=== PATIENT | female | born 1995 | race Caucasian/White ===

== ENCOUNTER 2021-05-08 05:01 | Inpatient (IN) | payer BC ==
[2021-05-08] MEDS ORDERED: Sodium Chloride 0.9% 10 ML Syringe FLUSH PRN (07:52)
[2021-05-08] MEDS ORDERED: Calcium Carbonate 500 MG Tab.Chew PO PRN (07:52)
[2021-05-08] MEDS ORDERED: fentaNYL 100 MCG/2 ML SDV IVPUSH PRN (07:52)
[2021-05-08] MEDS ORDERED: Misoprostol 50 MCG (1/2 of 100 MCG) Tab VAG ONE (08:00)
[2021-05-08] MEDS: Ondansetron 4 MG/2 ML SDV IV PRN ×2 (08:26→13:37)
--- NOTE | 2021-05-08 08:29 | PCM.LDHP ---
L&D History of Present Illness - General Date of Service: 05/08/21 Admit Problem/Dx: Patient Status Order with Admit Dx/Problem 05/08/21 07:52 Patient Status [ADT] Routine Admission Diagnosis/Problem Admission Diagnosis/Problem Term Source of Information: Patient History Limitations: Reports: No Limitations - History of Present Illness Introduction:: 05/08/21 25 yo presents to L & D today for induction of labor at 39 0/7 weeks. She is being induced due to induced hypertension. She has had normal labs and has no s/s of preeclampsia, she was taken off work awhile ago which helped keep her blood pressures stable. She is A positive blood type, GBS negative, rubella immune, HIV/Hep C/B/RPR all non reactive. She has had some jim benavidez at home over the last few days. BPP 8/8 today with NST reactive for 08/09. Marilee has had an uncomplicated . Timing/Duration: Reports: intermittent Severity: Mild Improves with: Reports: None Worsens with: Reports: None Associated Symptoms: Denies: vaginal bleeding, vaginal fluid - Related Data Allergies/Adverse Reactions: Allergies Allergy/AdvReac Type Severity Reaction Status Date / Time No Known Allergies Allergy Verified 04/30/21 10:21 Home Medications: Home Meds Ferrous Gluconate [Iron] 1 tab PO DAILY 04/30/21 [History] Pnv No.95/Ferrous Fum/Folic AC [ Caplet] 1 tab PO DAILY 04/30/21 [History] Past Medical History HEENT History: Reports: Impaired Vision Cardiovascular History: Reports: Hypertension, Other (See Below) Other Cardiovascular History: HTN with . 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 Psychiatric History: Reports: Depression Hematologic History: Reports: Iron Deficiency - Infectious Disease History Infectious Disease History: Reports: Chicken Pox - Past Surgical History HEENT Surgical History: Reports: None Cardiovascular Surgical History: Reports: None Neurological Surgical History: Reports: None Social & Family History - Tobacco Use Tobacco Use Status *Q: Never Tobacco User Second Hand Smoke Exposure: No - Caffeine Use Caffeine Use: Reports: Coffee - Recreational Drug Use Recreational Drug Use: No H&P Review of Systems - Review of Systems: Review Of Systems: See Below General: Reports: No Symptoms HEENT: Reports: No Symptoms Pulmonary: Reports: No Symptoms Cardiovascular: Reports: No Symptoms Gastrointestinal: Reports: Nausea Genitourinary: Reports: No Symptoms Musculoskeletal: Reports: No Symptoms Skin: Reports: No Symptoms Psychiatric: Reports: No Symptoms Neurological: Reports: No Symptoms Hematologic/Lymphatic: Reports: No Symptoms Immunologic: Reports: No Symptoms L&D Exam - Exam Exam: See Below - Vital Signs Vital Signs: Last Vital Signs Temp 36.9 C 05/08/21 07:39 Pulse 102 H 05/08/21 07:39 Resp 18 05/08/21 07:39 BP 138/80 05/08/21 07:39 Pulse Ox 97 05/08/21 07:39 Weight: 90.718 kg - OB Specific Contraction Intensity: Irritability Movement: Active Heart Tones: Present Heart Tones per Min: 140 Heart Rate (FHR) Variability: Moderate (6-25 bmp) Presentation: Vertex - Mills Score Mills Score Cervix Position: Midposition Mills Score Consistency: Soft Mills Score Effacement: 51-70% Mills Score Dilation: 1-2 cm Mills Score Infant's Station: -2 Mills Score Total: 7 - Exam General: Alert, Oriented HEENT: PERRLA, Conjunctiva Clear, EACs Clear, EOMI, Hearing Intact, Mucosa Moist & [place], Nares Patent, Normal Nasal Septum, Pupils Equal, Pupils Reactive Neck: Supple, Trachea Midline Lungs: Clear to Auscultation, Normal Respiratory Effort Cardiovascular: Regular Rate, Regular Rhythm GI/Abdominal Exam: Normal Bowel Sounds, Soft, Non-Tender, Pelvis Stable Genitourinary: Normal external exam, Normal bimanual exam, Cervical dilitation, Enlarged uterus Back Exam: Normal Inspection, Full Range of Motion Extremities: Normal Inspection, Normal Range of Motion, Non-Tender, No Pedal Edema, Normal Capillary Refill Skin: Warm, Dry, Intact Neurological: Cranial Nerves Intact, Reflexes Equal Bilateral Psychiatric: Alert, Normal Affect, Normal Mood - Patient Data Lab Results Last 24 hrs: Laboratory Results - last 24 hr 05/08/21 05/08/21 05/08/21 Range/Units 07:01 07:01 07:15 WBC 10.6 (4.5-11.0) K/uL RBC 3.82 (3.30-5.50) M/uL Hgb 11.7 L (12.0-15.0) g/dL Hct 35.0 L (36.0-48.0) % MCV 92 (80-98) fL MCH 31 (27-31) pg MCHC 33 (32-36) % Plt Count 306 (150-400) K/uL Neut % (Auto) 55.8 (36-66) % Lymph % (Auto) 35.3 (24-44) % Ray % (Auto) 7.1 H (2-6) % Eos % (Auto) 1.2 L (2-4) % Baso % (Auto) 0.6 (0-1) % Urine Color Yellow (YELLOW) Urine Appearance Slightly cloudy A (CLEAR) Urine pH 7.0 (5.0-8.0) Ur Specific [place] 1.025 (1.008-1.030) Urine Protein Negative (NEGATIVE) mg/dL Urine Glucose (UA) Negative (NEGATIVE) mg/dL Urine Ketones Negative (NEGATIVE) mg/dL Urine Occult Blood Negative (NEGATIVE) Urine Nitrite Negative (NEGATIVE) Urine Bilirubin Negative (NEGATIVE) Urine Urobilinogen 0.2 (0.2-1.0) EU/dL Ur Leukocyte Esterase Negative (NEGATIVE) Urine RBC Not seen (0-5) Urine WBC 0-5 (0-5) Ur Epithelial Cells Moderate Amorphous Sediment Not seen Urine Bacteria Moderate Urine Mucus Few Urine Opiates Screen Negative (NEGATIVE) Ur Oxycodone Screen Negative (NEGATIVE) Urine Methadone Screen Negative (NEGATIVE) Ur Propoxyphene Screen Negative (NEGATIVE) Ur Barbiturates Screen Negative (NEGATIVE) Ur Tricyclics Screen Negative (NEGATIVE) Ur Phencyclidine Scrn Negative (NEGATIVE) Ur Amphetamine Screen Negative (NEGATIVE) U Methamphetamines Scrn Negative (NEGATIVE) Urine MDMA Screen Negative (NEGATIVE) U Benzodiazepines Scrn Negative (NEGATIVE) U Cocaine Metab Screen Negative (NEGATIVE) U Marijuana (THC) Screen Negative (NEGATIVE) SARS CoV-2 RNA Rapid BROCK 05/08/21 Range/Units 08:15 WBC (4.5-11.0) K/uL RBC (3.30-5.50) M/uL Hgb (12.0-15.0) g/dL Hct (36.0-48.0) % MCV (80-98) fL MCH (27-31) pg MCHC (32-36) % Plt Count (150-400) K/uL Neut % (Auto) (36-66) % Lymph % (Auto) (24-44) % Ray % (Auto) (2-6) % Eos % (Auto) (2-4) % Baso % (Auto) (0-1) % Urine Color (YELLOW) Urine Appearance (CLEAR) Urine pH (5.0-8.0) Ur Specific [place] (1.008-1.030) Urine Protein (NEGATIVE) mg/dL Urine Glucose (UA) (NEGATIVE) mg/dL Urine Ketones (NEGATIVE) mg/dL Urine Occult Blood (NEGATIVE) Urine Nitrite (NEGATIVE) Urine Bilirubin (NEGATIVE) Urine Urobilinogen (0.2-1.0) EU/dL Ur Leukocyte Esterase (NEGATIVE) Urine RBC (0-5) Urine WBC (0-5) Ur Epithelial Cells Amorphous Sediment Urine Bacteria Urine Mucus Urine Opiates Screen (NEGATIVE) Ur Oxycodone Screen (NEGATIVE) Urine Methadone Screen (NEGATIVE) Ur Propoxyphene Screen (NEGATIVE) Ur Barbiturates Screen (NEGATIVE) Ur Tricyclics Screen (NEGATIVE) Ur Phencyclidine Scrn (NEGATIVE) Ur Amphetamine Screen (NEGATIVE) U Methamphetamines Scrn (NEGATIVE) Urine MDMA Screen (NEGATIVE) U Benzodiazepines Scrn (NEGATIVE) U Cocaine Metab Screen (NEGATIVE) U Marijuana (THC) Screen (NEGATIVE) SARS CoV-2 RNA Rapid BROCK Negative Result Diagrams: 05/08/21 07:15 - Problem List (1) induced hypertension SNOMED Code(s): 33990846 ICD Code: O13.9 - GESTATIONAL HTN W/O SIGNIFICANT PROTEINURIA, UNSP TRIMESTER Status: Acute Current Visit: Yes (2) Term SNOMED Code(s): 10651059 ICD Code: Z34.90 - ENCNTR FOR SUPRVSN OF NORMAL , UNSP, UNSP TRIMESTER Status: Acute Current Visit: Yes (3) Elective induction of labor planned SNOMED Code(s): 125029309 ICD Code: [id number] - Status: Acute Current Visit: Yes Problem List Initiated/Reviewed/Updated: Yes Orders Last 24hrs: Active Orders 24 hr Category Date Time Status Patient Status [ADT] Routine ADT 05/08/21 07:52 Active Communication Order [RC] ASDIRECTED Care 05/08/21 07:52 Active Heart Tones [RC] PER UNIT ROUTINE Care 05/08/21 07:52 Active Non Stress Test [RC] Click to Edit Care 05/08/21 07:52 Active Notify Provider Vital Signs [RC] PRN Care 05/08/21 07:54 Active Notify Provider [RC] PRN Care 05/08/21 07:52 Active Up ad Liliana [RC] ASDIRECTED Care 05/08/21 07:52 Active VTE/DVT Education [RC] Click to Edit Care 05/08/21 07:55 Active Vital Signs [RC] PER UNIT ROUTINE Care 05/08/21 07:52 Active Regular Diet [DIET] Diet 05/08/21 Breakfast Active BPP w NST [US] Routine Exams 05/08/21 07:06 Taken Calcium Carbonate [Tums] Med 05/08/21 07:52 Active 1,000 mg PO Q2H PRN Ondansetron [Zofran] Med 05/08/21 07:52 Active 4 mg IV Q4H PRN Sodium Chloride 0.9% [Saline Flush] Med 05/08/21 07:52 Active 10 ml FLUSH ASDIRECTED PRN fentaNYL [Sublimaze] Med 05/08/21 07:52 Active 100 mcg IVPUSH Q1H PRN DVT/VTE Prophylaxis Reflex [OM.PC] Routine Oth 05/08/21 07:52 Ordered Saline Lock Insert [OM.PC] Routine Oth 05/08/21 07:52 Ordered Resuscitation Status Routine Resus Stat 05/08/21 07:52 Ordered Medication Orders Calcium Carbonate/Glycine (Calcium Carbonate 500 Mg Tab.Chew) 1,000 mg PO Q2H PRN PRN Reason: Indigestion Fentanyl (Fentanyl 100 Mcg/2 Ml Sdv) 100 mcg IVPUSH Q1H PRN PRN Reason: Pain (moderate 4-6) Ondansetron HCl (Ondansetron 4 Mg/2 Ml Sdv) 4 mg IV Q4H PRN PRN Reason: Nausea/Vomiting Sodium Chloride (Sodium Chloride 0.9% 10 Ml Syringe) 10 ml FLUSH ASDIRECTED PRN PRN Reason: Keep Vein Open Assessment/Plan Comment:: 05/08/21 here for induction of labor at 39 0/7 weeks for induced hypertension GBS negative SVE /-2, vertex presentation EFW 7 lb BP stable, 138/80 this am, no protein in the urine, normal platelets Plan: 50 mcg cytotec inserted vaginally Monitor for one hour then up moving and intermittent monitoring Anticipate Reassess cervical change at lunch unless indicated sooner
[2021-05-08] MEDS: Lactated Ringers 1,000 ML IV SCH ×2 (12:20→23:19)
[2021-05-08] MEDS ORDERED: Lactated Ringers 500 ML IV ONE (12:20)
--- NOTE | 2021-05-08 12:41 | US ---
BPP w NST INDICATION: hypertension COMPARISON: None FINDINGS: Single live IUP in: Cephalic position. heart rate: 139 BPM. Biophysical profile score: 8/8. JAMES: 15 cm. IMPRESSION: Normal biophysical profile score of 8/8.
--- NOTE | 2021-05-08 12:44 | PCM.PNLD ---
Labor Progress Note - VS & Meds Vital Signs: Last Vital Signs Temp 36.9 C 05/08/21 07:39 Pulse 70 05/08/21 09:22 Resp 18 05/08/21 09:22 BP 120/58 L 05/08/21 09:11 Pulse Ox 98 05/08/21 09:22 Active Medications: Current Medications Calcium Carbonate/Glycine (Calcium Carbonate 500 Mg Tab.Chew) 1,000 mg PO Q2H PRN PRN Reason: Indigestion Fentanyl (Fentanyl 100 Mcg/2 Ml Sdv) 100 mcg IVPUSH Q1H PRN PRN Reason: Pain (moderate 4-6) Lactated Ringer's (Ringers, Lactated) 500 mls @ 999 mls/hr IV ASDIRECTED ONE Stop: 05/08/21 12:50 Lactated Ringer's (Ringers, Lactated) 1,000 mls @ 125 mls/hr IV ASDIRECTED SHEA Last Admin: 05/08/21 12:20 Dose: 125 mls/hr Documented by: Ondansetron HCl (Ondansetron 4 Mg/2 Ml Sdv) 4 mg IV Q4H PRN PRN Reason: Nausea/Vomiting Last Admin: 05/08/21 08:26 Dose: 4 mg Documented by: Sodium Chloride (Sodium Chloride 0.9% 10 Ml Syringe) 10 ml FLUSH ASDIRECTED PRN PRN Reason: Keep Vein Open Discontinued Medications Misoprostol (Misoprostol 50 Mcg (1/2 Of 100 Mcg) Tab) 50 mcg VAG ONETIME ONE Stop: 05/08/21 08:01 Last Admin: 05/08/21 08:20 Dose: 50 mcg Documented by: - Uterine Contractions Uterine Monitoring Mode: External [place]hr Contraction Frequency (min): 1 Contraction Duration (sec): 40-60 Contraction Intensity: Mild to Moderate Uterine Resting Tone: Soft - Monitoring Monitor Mode: External Ultrasound Heart Rate (FHR) Variability: Moderate (6-25 bmp) Accelerations: Present, 15x15 Decelerations: Variable Strip Review: Category II - Vaginal Exam Dilation (cm): 1.5 Effacement (Percent): 80 Station: -2 Cervical Position: Midposition Sterile Vaginal Exam Performed By: Marleen Garcia - Labor Progress (Free Text) Labor Progress: 05/08/21 I was called to bedside due to leaking of fluid and recurrent variable decele rations. Variability is moderate, good baseline, there is variable decelerations present with some contractions, not quite enough to call them recurrent, most are mild. Uterus is hyperstimulated from cytotec so fluid bolus is started. She did have SROM of small amount of clear fluid. SVE 1.5/80/-2. Moved patient to hands and knees and will continue to monitor FHT's. Patient starting to feel some pain in both her abdomen and low back with contractions.
[2021-05-08] MEDS ORDERED: ePHEDrine 50 MG/ML SDV IVPUSH PRN ×2 (13:49→16:24)
[2021-05-08] MEDS ORDERED: Lactated Ringers 1,000 ML IV ONE (13:49)
[2021-05-08] MEDS ORDERED: Terbutaline 1 MG/ML SDV ONE (14:10)
[2021-05-08] MEDS ORDERED: Terbutaline 1 MG/ML SDV SUBCUT ONE (14:14)
[2021-05-08] MEDS ORDERED: Oxytocin 10 Units/1 ML SDV ONE ×2 (14:25→14:44)
[2021-05-08] MEDS ORDERED: Propofol 200 MG/20 ML SDV ONE (14:25)
[2021-05-08] MEDS ORDERED: Succinylcholine 200 MG/10 ML MDV ONE (14:25)
[2021-05-08] MEDS ORDERED: Rocuronium 50 MG/5 ML Vial ONE (14:41)
[2021-05-08] MEDS ORDERED: fentaNYL 250 MCG/5 ML SDV ONE (14:42)
[2021-05-08] MEDS ORDERED: Dexamethasone 4 MG/ML SDV ONE (14:45)
[2021-05-08] MEDS ORDERED: Ondansetron 4 MG/2 ML SDV ONE (14:45)
[2021-05-08] MEDS ORDERED: Neostigmine Methylsulfate 1 MG/ML 5 ML Syringe ONE (14:46)
[2021-05-08] MEDS ORDERED: Glycopyrrolate 0.2 MG/ML 5 ML MDV ONE (14:46)
[2021-05-08] MEDS ORDERED: ceFAZolin 1 GM Vial ONE (14:54)
[2021-05-08] MEDS ORDERED: Sodium Chloride 0.9% 10 ML ONE (14:54)
[2021-05-08] MEDS ORDERED: fentaNYL 100 MCG/2 ML SDV ONE (15:15)
[2021-05-08] MEDS ORDERED: Sugammadex Sodium 200 MG/2 ML VIAL ONE (15:23)
[2021-05-08] MEDS ORDERED: fentaNYL 100 MCG/2 ML SDV IVPUSH ONE (15:43)
--- NOTE | 2021-05-08 15:43 | PCM.SN.2 ---
- Free Text/Narrative Note: 05/08/21 Around 1420 I was called to the room to recheck patient due to pain and wanting an epidural. SVE /-1. Baby was having recurrent variable decelerations and there was difficulty keeping baby on the monitor. Uterus was still hyperstimulated even though there were no further medications used to initiate contractions and a fluid bolus had been done. Recurrent variables with every contraction started, down to 60's. Interventions included position changes, scalp stimulation (with no acceleration achieved), fluid bolus, and finally terbutaline. A scalp electrode was not placed due to difficulty with equipment. There was some recovery after the terbutaline was given. There was still moderate variability but with Category 2 tracing and loss of accelerations, patient was counseled on section and the risk of category 3 tracing if we continued labor. She requested a section for the health of baby. She understood that the FHT tracing could either improve or worsen and she consented to primary emergent section.
[2021-05-08] MEDS ORDERED: Ibuprofen 800 MG Tab PO PRN (16:24)
[2021-05-08] MEDS ORDERED: Bisacodyl 10 MG Supp RECTAL PRN (16:24)
[2021-05-08] MEDS ORDERED: Simethicone 80 MG Tab.Chew PO PRN (16:24)
[2021-05-08] MEDS ORDERED: Naloxone 0.4 MG/ML SDV IVPUSH PRN (16:24)
[2021-05-08] MEDS ORDERED: diphenhydrAMINE 50 MG/ML SDV IVPUSH PRN (16:24)
[2021-05-08] MEDS ORDERED: Witch Hazel Medicated Pads 100/Jar TOP ONE (16:24)
[2021-05-08] MEDS ORDERED: Ondansetron 4 MG Tab.DIS PO PRN (16:24)
[2021-05-08] MEDS ORDERED: Lanolin 100% Cream 40 GM Tube TOP ONE (16:24)
[2021-05-08] MEDS ORDERED: Benzocaine 20% Top Spray 56 GM Bottle TOP ONE (16:24)
[2021-05-08] MEDS: fentaNYL 100 MCG/2 ML SDV IVPUSH PRN ×2 (16:40→21:54)
[2021-05-08] MEDS ORDERED: Ketorolac 30 MG/ML SDV IVPUSH ONE (17:05)
[2021-05-08] MEDS ORDERED: Witch Hazel Medicated Pads 100/Jar TOP PRN (18:00)
[2021-05-08] MEDS ORDERED: Lanolin 100% Cream 40 GM Tube TOP PRN (18:00)
[2021-05-08] MEDS ORDERED: Lactated Ringers 1,000 ML IV SCH (18:30)
[2021-05-08] MEDS ORDERED: Benzocaine 20% Top Spray 56 GM Bottle TOP PRN (20:30)
[2021-05-08] MEDS: Acetaminophen/HYDROcodone 325-5 MG Tab PO PRN (20:42)
[2021-05-08] MEDS: Ibuprofen 800 MG Tab PO PRN (23:16)
[2021-05-09] MEDS: Acetaminophen/HYDROcodone 325-5 MG Tab PO PRN ×5 (00:51→20:19)
[2021-05-09] MEDS: Lactated Ringers 1,000 ML IV SCH (05:12)
[2021-05-09] MEDS: Prenatal Multivitamin with Calcium/Folic Acid/Iron Tab PO SCH (09:21)
--- NOTE | 2021-05-09 09:45 | PCM.PNPP ---
- General Info Date of Service: 05/09/21 Functional Status: Reports: Pain Controlled, Tolerating Diet, Ambulating - Review of Systems General: Reports: Fatigue HEENT: Reports: No Symptoms Pulmonary: Reports: No Symptoms Cardiovascular: Reports: No Symptoms Gastrointestinal: Reports: No Symptoms Genitourinary: Reports: Other (spring catheter in place) Musculoskeletal: Reports: No Symptoms Skin: Reports: No Symptoms Neurological: Reports: Dizziness Psychiatric: Reports: No Symptoms - General Info Date of Service: 05/09/21 - Patient Data Vital Signs - Most Recent: Last Vital Signs Temp 36.0 C L 05/09/21 07:13 Pulse 95 05/09/21 07:13 Resp 18 05/09/21 07:13 BP 113/73 05/09/21 07:13 Pulse Ox 96 05/09/21 07:13 Weight - Most Recent: 90.718 kg I&O - Last 24 Hours: Intake & Output 05/08/21 05/09/21 05/09/21 22:59 06:59 14:59 Intake Total 220 3790 526 Output Total 900 155 Balance -680 3635 526 Lab Results - Last 24 Hours: Laboratory Results - last 24 hr 05/08/21 05/08/21 05/09/21 Range/Units 07:30 18:41 04:20 WBC 17.9 H (4.5-11.0) K/uL RBC 2.70 L (3.30-5.50) M/uL Hgb 8.5 L D 8.3 L (12.0-15.0) g/dL Hct 24.8 L (36.0-48.0) % MCV 92 (80-98) fL MCH 31 (27-31) pg MCHC 34 (32-36) % Plt Count 249 (150-400) K/uL Neut % (Auto) 80.8 H (36-66) % Lymph % (Auto) 11.9 L (24-44) % Cannon % (Auto) 7.2 H (2-6) % Eos % (Auto) 0.0 L (2-4) % Baso % (Auto) 0.1 (0-1) % Sodium (140-148) mmol/L Potassium (3.6-5.2) mmol/L Chloride (100-108) mmol/L Carbon Dioxide (21-32) mmol/L Anion Gap (5.0-14.0) mmol/L BUN (7-18) mg/dL Creatinine (0.6-1.0) mg/dL Est Cr Clr Drug Dosing mL/min Estimated GFR (MDRD) (>60) Glucose (74-106) mg/dL Calcium (8.5-10.1) mg/dL Blood Type A POSITIVE Gel Antibody Screen Negative Crossmatch See Detail 05/09/21 Range/Units 04:20 WBC (4.5-11.0) K/uL RBC (3.30-5.50) M/uL Hgb (12.0-15.0) g/dL Hct (36.0-48.0) % MCV (80-98) fL MCH (27-31) pg MCHC (32-36) % Plt Count (150-400) K/uL Neut % (Auto) (36-66) % Lymph % (Auto) (24-44) % Cannon % (Auto) (2-6) % Eos % (Auto) (2-4) % Baso % (Auto) (0-1) % Sodium 138 L (140-148) mmol/L Potassium 5.2 (3.6-5.2) mmol/L Chloride 104 (100-108) mmol/L Carbon Dioxide 20 L (21-32) mmol/L Anion Gap 19.2 H (5.0-14.0) mmol/L BUN 11 D (7-18) mg/dL Creatinine 1.2 H D (0.6-1.0) mg/dL Est Cr Clr Drug Dosing 63.26 mL/min Estimated GFR (MDRD) 54 L (>60) Glucose 125 H (74-106) mg/dL Calcium 7.6 L (8.5-10.1) mg/dL Blood Type Gel Antibody Screen Crossmatch Med Orders - Current: Current Medications Hydrocodone Bitart/Acetaminophen (Acetaminophen/Hydrocodone 325-5 Mg Tab) 1 tab PO Q4H PRN PRN Reason: Pain (moderate 4-6) Last Admin: 05/09/21 09:20 Dose: 1 tab Documented by: Benzocaine (Benzocaine 20% Top [place] 56 Gm Bottle) 0 gm TOP Q4H PRN PRN Reason: perianal area Bisacodyl (Bisacodyl 10 Mg Supp) 10 mg RECTAL BID PRN PRN Reason: Constipation Calcium Carbonate/Glycine (Calcium Carbonate 500 Mg Tab.Chew) 1,000 mg PO Q2H PRN PRN Reason: Indigestion Diphenhydramine HCl (Diphenhydramine 50 Mg/Ml Sdv) 25 mg IVPUSH Q6H PRN PRN Reason: Itching or Nausea Docusate Sodium (Docusate Sodium 100 Mg Cap) 100 mg PO DAILY PRN PRN Reason: Constipation Emollient Ointment (Lanolin 100% Cream 40 Gm Tube) 40 gm TOP ASDIRECTED PRN PRN Reason: SORE NIPPLES Ephedrine Sulfate (Ephedrine 50 Mg/Ml Sdv) 5 mg IVPUSH ASDIRECTED PRN PRN Reason: Other Fentanyl (Fentanyl 100 Mcg/2 Ml Sdv) 10 - 30 mcg IVPUSH Q1H PRN PRN Reason: Pain (severe 7-10) Last Admin: 05/08/21 21:54 Dose: 30 mcg Documented by: Ferrous Sulfate (Ferrous Sulfate 325 Mg Tab) 325 mg PO BIDMEALS [facility] Lactated Ringer's (Ringers, Lactated) 1,000 mls @ 125 mls/hr IV ASDIRECTED [facility] Last Admin: 05/09/21 05:12 Dose: 125 mls/hr Documented by: Ibuprofen (Ibuprofen 800 Mg Tab) 800 mg PO Q8H PRN PRN Reason: mild pain or fever Last Admin: 05/08/21 23:16 Dose: 800 mg Documented by: Naloxone HCl (Naloxone 0.4 Mg/Ml Sdv) 0.1 mg IVPUSH ASDIRECTED PRN PRN Reason: Respiratory Depression Ondansetron HCl (Ondansetron 4 Mg/2 Ml Sdv) 4 mg IV Q4H PRN PRN Reason: Nausea/Vomiting Last Admin: 05/08/21 13:37 Dose: 4 mg Documented by: Ondansetron HCl (Ondansetron 4 Mg Tab.Dis) 8 mg PO Q6H PRN PRN Reason: Nausea/Vomiting Prenat Multivit/[place]/Iron/Folic Ac ( Multivitamin With Calcium/Folic Acid/Iron Tab) 1 each PO DAILY [facility] Last Admin: 05/09/21 09:21 Dose: 1 each Documented by: Simethicone (Simethicone 80 Mg Tab.Chew) 80 mg PO Q4H PRN PRN Reason: Gas Sodium Chloride (Sodium Chloride 0.9% 10 Ml Syringe) 10 ml FLUSH ASDIRECTED PRN PRN Reason: Keep Vein Open Witch Shawna (Witch Shawna Medicated Pads 100/Jar) 1 pad TOP ASDIRECTED PRN PRN Reason: perineum Discontinued Medications Benzocaine (Benzocaine 20% Top [place] 56 Gm Bottle) 0 gm TOP Q4H ONE Stop: 05/08/21 16:25 Last Admin: 05/08/21 17:29 Dose: 56 gm Documented by: Cefazolin Sodium (Cefazolin 1 Gm Vial) Confirm Administered Dose 2 gm .ROUTE .STK-MED ONE Stop: 05/08/21 14:55 Dexamethasone (Dexamethasone 4 Mg/Ml Sdv) Confirm Administered Dose 4 mg .ROUTE .STK-MED ONE Stop: 05/08/21 14:46 Emollient Ointment (Lanolin 100% Cream 40 Gm Tube) 40 gm TOP ASDIRECTED ONE Stop: 05/08/21 16:25 Last Admin: 05/08/21 17:27 Dose: 40 gm Documented by: Ephedrine Sulfate (Ephedrine 50 Mg/Ml Sdv) 10 mg IVPUSH ASDIRECTED PRN PRN Reason: Hypotension Fentanyl (Fentanyl 100 Mcg/2 Ml Sdv) 100 mcg IVPUSH Q1H PRN PRN Reason: Pain (moderate 4-6) Fentanyl (Fentanyl 250 Mcg/5 Ml Sdv) Confirm Administered Dose 250 mcg .ROUTE .STK-MED ONE Stop: 05/08/21 14:43 Fentanyl (Fentanyl 100 Mcg/2 Ml Sdv) Confirm Administered Dose 100 mcg .ROUTE .STK-MED ONE Stop: 05/08/21 15:16 Fentanyl (Fentanyl 100 Mcg/2 Ml Sdv) 50 mcg IVPUSH ONETIME ONE Stop: 05/08/21 15:44 Last Admin: 05/08/21 15:48 Dose: 50 mcg Documented by: Glycopyrrolate (Glycopyrrolate 0.2 Mg/Ml 5 Ml Mdv) Confirm Administered Dose 1 mg .ROUTE .STK-MED ONE Stop: 05/08/21 14:47 Lactated Ringer's (Ringers, Lactated) 500 mls @ 999 mls/hr IV ASDIRECTED ONE Stop: 05/08/21 12:50 Last Admin: 05/08/21 12:20 Dose: 999 mls/hr Documented by: Lactated Ringer's (Ringers, Lactated) 1,000 mls @ 999 mls/hr IV .BOLUS ONE Stop: 05/08/21 14:49 Last Admin: 05/08/21 14:02 Dose: 999 mls/hr Documented by: Sodium Chloride (Normal Saline) Confirm Administered Dose 10 mls @ as directed .ROUTE .STK-MED ONE Stop: 05/08/21 14:55 Lactated Ringer's (Ringers, Lactated) 1,000 mls @ 250 mls/hr IV ASDIRECTED SHEA Stop: 05/08/21 22:30 Last Admin: 05/08/21 18:47 Dose: 250 mls/hr Documented by: Ibuprofen (Ibuprofen 800 Mg Tab) 800 mg PO Q8H PRN PRN Reason: mild pain or fever Ketorolac Tromethamine (Ketorolac 30 Mg/Ml Sdv) 30 mg IVPUSH ONETIME ONE Stop: 05/08/21 17:06 Last Admin: 05/08/21 17:23 Dose: 30 mg Documented by: Misoprostol (Misoprostol 50 Mcg (1/2 Of 100 Mcg) Tab) 50 mcg VAG ONETIME ONE Stop: 05/08/21 08:01 Last Admin: 05/08/21 08:20 Dose: 50 mcg Documented by: Neostigmine Methylsulfate (Neostigmine Methylsulfate 1 Mg/Ml 5 Ml Syringe) Confirm Administered Dose 5 mg .ROUTE .STK-MED ONE Stop: 05/08/21 14:47 Ondansetron HCl (Ondansetron 4 Mg/2 Ml Sdv) Confirm Administered Dose 4 mg .ROUTE .STK-MED ONE Stop: 05/08/21 14:46 Oxytocin (Oxytocin 10 Units/1 Ml Sdv) Confirm Administered Dose 10 unit .ROUTE .STK-MED ONE Stop: 05/08/21 14:26 Oxytocin (Oxytocin 10 Units/1 Ml Sdv) Confirm Administered Dose 10 unit .ROUTE .STK-MED ONE Stop: 05/08/21 14:45 Last Admin: 05/08/21 14:45 Dose: 10 unit Documented by: Propofol (Propofol 200 Mg/20 Ml Sdv) Confirm Administered Dose 200 mg .ROUTE .S TK-MED ONE Stop: 05/08/21 14:26 Rocuronium [place] (Rocuronium 50 Mg/5 Ml Vial) Confirm Administered Dose 50 mg .ROUTE .STK-MED ONE Stop: 05/08/21 14:42 Succinylcholine Chloride (Succinylcholine 200 Mg/10 Ml Mdv) Confirm Administered Dose 200 mg .ROUTE .STK-MED ONE Stop: 05/08/21 14:26 Sugammadex Sodium (Sugammadex Sodium 200 Mg/2 Ml Vial) Confirm Administered Dose 200 mg .ROUTE .STK-MED ONE Stop: 05/08/21 15:24 Terbutaline Sulfate (Terbutaline 1 Mg/Ml Sdv) Confirm Administered Dose 1 mg .ROUTE .STK-MED ONE Stop: 05/08/21 14:11 Last Admin: 05/08/21 15:33 Dose: Not Given Documented by: Terbutaline Sulfate (Terbutaline 1 Mg/Ml Sdv) 0.25 mg SUBCUT ONETIME ONE Stop: 05/08/21 14:15 Last Admin: 05/08/21 14:13 Dose: 0.25 mg Documented by: Ethan Matos (Ethan Matos Medicated Pads 100/Jar) 1 pad TOP ASDIRECTED ONE Stop: 05/08/21 16:25 Last Admin: 05/08/21 17:27 Dose: 1 pad Documented by: - Infant Interaction Disposition, : [place] in Room with Family Interaction: Holding Infant Infant Feeding: Breastfed ; Nursed Well Support Person: - Recovery Exam Fundal Tone: Firm Fundal Level: At Umbilicus Fundal Placement: Midline Lochia Amount: Small Lochia Color: Rubra/Red Perineum Description: Intact, Minimal Bruising/Swelling Episiotomy/Laceration: None Bladder Status: Indwelling Catheter in Place Urinary Elimination: Indwelling Catheter - Exam General: Alert, Oriented HEENT: Pupils Equal, Pupils Reactive, Mucous Membr. Moist/Dewey Neck: Supple Lungs: Clear to Auscultation, Normal Respiratory Effort Cardiovascular: Regular Rate, Regular Rhythm GI/Abdominal Exam: Normal Bowel Sounds, Soft, Non-Tender, Pelvis Stable Extremities: Normal Inspection, Normal Range of Motion, Non-Tender, No Pedal Edema, Normal Capillary Refill Skin: Warm, Dry Wound/Incisions: Healing Well, No Drainage Neurological: No New Focal Deficit Psy/Mental Status: Alert, Normal Affect, Normal Mood - Problem List & Annotations (1) induced hypertension SNOMED Code(s): 93820854 Code(s): O13.9 - GESTATIONAL HTN W/O SIGNIFICANT PROTEINURIA, UNSP TRIMESTER Status: Acute Current Visit: Yes (2) Term SNOMED Code(s): 33292482 Code(s): Z34.90 - ENCNTR FOR SUPRVSN OF NORMAL , UNSP, UNSP TRIMESTER Status: Acute Current Visit: Yes (3) Elective induction of labor planned SNOMED Code(s): 248623068 Code(s): LMA7793 - Status: Acute Current Visit: Yes (4) Delivery by section SNOMED Code(s): 365653253 Code(s): KRR4537 - Status: Acute Current Visit: Yes - Problem List Review Problem List Initiated/Reviewed/Updated: Yes - My Orders Last 24 Hours: My Active Orders 05/08/21 12:55 Lactated Ringers [Ringers, Lactated] 1,000 ml IV ASDIRECTED 05/08/21 13:49 Urinary Catheter Assessment [RC] ASDIRECTED Epidural Catheter Management [OM.PC] Urgent 05/08/21 14:00 Insert Urinary Catheter [OM.PC] ASDIRECTED 05/08/21 15:44 Communication Order [RC] Per Unit Routine Oxygen Therapy [RC] ASDIRECTED Pulse Oximetry [RC] ASDIRECTED Verify Patient Consent Obtain [RC] ASDIRECTED Medication Discontinuation Instructions [OM.PC] Routine 05/09/21 09:39 Docusate Sodium [Colace] 100 mg PO DAILY PRN 05/09/21 17:00 Ferrous Sulfate 325 mg PO BIDMEALS - Assessment Assessment:: 05/09/21 1 day post op Patient doing well this morning, pain controlled Tolerating diet and has been up Hgb 8.5 last night with symptoms so 1 unit of blood given, hgb 8.3 this morning, good color, feels well well - Plan Plan:: 05/08/21 here for induction of labor at 39 0/7 weeks for induced hypertension GBS negative SVE /-2, vertex presentation EFW 7 lb BP stable, 138/80 this am, no protein in the urine, normal platelets Plan: 50 mcg cytotec inserted vaginally Monitor for one hour then up moving and intermittent monitoring Anticipate Reassess cervical change at lunch unless indicated sooner 05/09/21 Remove spring catheter Saline lock IV Walk in halls support Surgery ordered CBC for tomorrow Anticipate discharge 48-72 hours post op
[2021-05-09] MEDS: Ibuprofen 800 MG Tab PO PRN (17:47)
[2021-05-09] MEDS: Ferrous Sulfate 325 MG Tab PO SCH (17:47)
[2021-05-09] MEDS: Docusate Sodium 100 MG Cap PO PRN (17:48)
[2021-05-10] MEDS: Ibuprofen 800 MG Tab PO PRN ×2 (00:12→15:05)
[2021-05-10] MEDS: Acetaminophen/HYDROcodone 325-5 MG Tab PO PRN ×5 (00:12→21:36)
[2021-05-10] MEDS ORDERED: Sodium Chloride 0.9% 10 ML Syringe FLUSH PRN (06:13)
[2021-05-10] MEDS ORDERED: Iopamidol 612 MG/ML 150 ML Bottle IV SCH (06:15)
--- NOTE | 2021-05-10 07:18 | CRLCT ---
For Patients: As a result of the Century Cures Act, medical imaging exams and procedure reports are released immediately into your electronic medical record. You may view this report before your referring provider. If you have questions, please contact your health care provider. INDICATION: critically low hemoglogin, tuesday Indication: Low hemoglobin. Recent . Technique: CT of the abdomen and pelvis. 135 cc of Isovue 300 IV. Coronal/sagittal reconstructed images. Comparison: None. Findings: Lung bases: Small left pleural effusion. Bibasilar atelectasis. No pericardial effusion. No basilar pneumothorax. Abdomen/pelvis: Small amount of free intraperitoneal air. There is hemorrhage within the hepatorenal fossa, as seen on image 61 of series 3. Spleen size is normal. There is no adrenal mass. There is no hydronephrosis, solid renal mass, or perinephric fluid collection. , with a large anterior pelvic wall hematoma, with displacement of the urinary bladder, and extension into the extraperitoneal space of Retzius. The hematoma measures a maximum of 16.5 x 6.4 cm in transverse and AP dimensions. There is presacral edema. Urinary bladder is normal. There is no evidence of a small bowel or colonic obstruction. There is no pneumatosis or portal venous gas. There is no inguinal or pelvic sidewall lymphadenopathy. The retroperitoneum and gastrohepatic ligament are normal. The bone windows demonstrate no suspicious bone lesions. Sclerotic foci in the pelvis are most likely benign bone islands. Vertebral body heights are maintained on sagittal reconstruction images. Impression: 1. Recent , with a large anterior pelvic wall hematoma, which is extraperitoneal, and is most likely a subfascial hematoma. Differential diagnosis includes a bladder flap hematoma. 2. Small amount of pneumoperitoneum, and small volume hemorrhage within the hepatorenal fossa. 3. Report called to Dr. Collier, referring clinical service, 05/10/21, 0717 hours. Dictated by John Mendieta MD @ 05/10/2021 7:18:03 AM Please note that all CT scans at this facility use dose modulation, iterative reconstruction, and/or weight-based dosing when appropriate to reduce radiation dose to as low as reasonably achievable. Dictated by: John Mendieta MD @ 05/10/2021 07:18:13 (Electronically Signed)
[2021-05-10] MEDS ORDERED: Propofol 200 MG/20 ML SDV ONE (07:46)
[2021-05-10] MEDS ORDERED: Glycopyrrolate 0.2 MG/ML 5 ML MDV ONE (07:46)
[2021-05-10] MEDS ORDERED: Rocuronium 50 MG/5 ML Vial ONE (07:46)
[2021-05-10] MEDS ORDERED: Succinylcholine 200 MG/10 ML MDV ONE (07:46)
[2021-05-10] MEDS ORDERED: Neostigmine Methylsulfate 1 MG/ML 5 ML Syringe ONE (07:46)
[2021-05-10] MEDS ORDERED: Ondansetron 4 MG/2 ML SDV ONE (07:46)
[2021-05-10] MEDS ORDERED: Dexamethasone 4 MG/ML SDV ONE (07:46)
[2021-05-10] MEDS ORDERED: fentaNYL 250 MCG/5 ML SDV ONE (07:47)
[2021-05-10] MEDS ORDERED: Bupivacaine 0.5% 50 ML MDV ONE (08:02)
[2021-05-10] MEDS ORDERED: Lidocaine 1% with EPINEPHrine 1:100,000 50 ML MDV ONE (08:02)
[2021-05-10] MEDS ORDERED: Ropivacaine 40 ML, dexAMETHasone 8 MG, EPINEPHrine 0.4 MG, Sodium Chloride 0.9% 37.6 ML NERVRT SCH ×4 (09:00)
[2021-05-10] MEDS: Prenatal Multivitamin with Calcium/Folic Acid/Iron Tab PO SCH ×2 (09:12→12:22)
[2021-05-10] MEDS ORDERED: fentaNYL 100 MCG/2 ML SDV ONE (09:19)
--- NOTE | 2021-05-10 10:45 | OR ---
DATE OF PROCEDURE: 05/08/2021 SURGEON: John Collier MD PROCEDURE: section with aftercare. PREOPERATIVE DIAGNOSES: Emergent section due to failure of thriving of baby. POSTOPERATIVE DIAGNOSIS: Emergent section due to failure of thriving of baby. SOCIAL WORK INSTRUCTOR: Marleen Garcia CNM RISKS: Risks, benefits, alternatives, and limitations were explained to patient briefly due to the rapidity and requirement of the procedure. Discussion of bowel and bladder injury along with injury to baby was discussed at a minimum. PROCEDURE IN DETAIL: The patient was immediately and rapidly prepped and draped. A Pfannenstiel-type incision was made. This was carried down sharply through the fascia. The rectus muscles were open. The bladder was deflected. The bladder was not deflated due to no Willson being placed due to the emergent requirement of the possible nonviable baby. The uterus was opened bluntly. The baby was delivered without difficulty. Pressure was then held, and the cord was clamped and cut. At this point, the baby was delivered off the field into the theater and then the uterus was then assessed. The placenta was removed. Pitocin was given. The uterus was closed in a running locked #1 Vicryl sutures in 4 layers after hemostasis was achieved. The bladder was inspected without abnormality. However, no blood could to be assessed via the Willson due to the lack of the Willson. The clots were then removed from the abdomen. The rectus sheath was reapproximated with Vicryl suture. The fascia was closed with #1 Vicryl. Subcutaneous tissues were irrigated. The skin was closed with 4-0 Vicryl. The patient tolerated the procedure well. John Collier MD /[id number]
--- NOTE | 2021-05-10 11:56 | PN ---
DATE OF SERVICE: 05/09/2021 SUBJECTIVE: Patient is doing well. Pain is well controlled. No nausea, vomiting, shortness of breath, or chest pain. OBJECTIVE: VITAL SIGNS: Stable. CARDIOVASCULAR: Regular rhythm and rate. RESPIRATORY: Lungs are clear to auscultation bilaterally. ABDOMEN: Incision healing well. ASSESSMENT: Status post . PLAN: The patient does not have any vaginal bleeding. She feels subjectively and objectively better and will work with the printed circuit boards contact printer to determine discharge status in the next day or two. John Collier MD /[id number]
[2021-05-10] MEDS: Ferrous Sulfate 325 MG Tab PO SCH ×2 (12:21→17:11)
--- NOTE | 2021-05-10 12:33 | PN ---
DATE OF SERVICE: 05/10/2021 SUBJECTIVE: The patient feels very good today. No nausea, vomiting, shortness of breath, chest pain, having bowel movements. OBJECTIVE: VITAL SIGNS: Stable. CARDIOVASCULAR: Regular rhythm and rate. RESPIRATORY: Lungs are clear to auscultation bilaterally. ABDOMEN: Very mildly distended. ASSESSMENT: Status post . PLAN: The patient had a low hemoglobin and subsequent CT scan showed a rectus sheath hematoma, which is not surprising considering the urgency and rapidity of the . Therefore, we will transfuse her with 2 units of packed red blood cells, 1 unit FFP, and take her to the operating room for hematoma evacuation. We discussed risks, benefits, alternatives and limitations including not limited to infection, bleeding, chronic pain, requiring further operations, drain placement, other risks not listed here. John Collier MD /[id number]
[2021-05-10] MEDS: Docusate Sodium 100 MG Cap PO PRN (15:06)
[2021-05-11] MEDS: Acetaminophen/HYDROcodone 325-5 MG Tab PO PRN ×2 (02:56→07:34)
[2021-05-11] MEDS: Ferrous Sulfate 325 MG Tab PO SCH ×2 (07:34→17:38)
[2021-05-11] MEDS: Prenatal Multivitamin with Calcium/Folic Acid/Iron Tab PO SCH ×2 (07:34→08:15)
[2021-05-11] MEDS: Docusate Sodium 100 MG Cap PO PRN (07:39)
--- NOTE | 2021-05-11 07:46 | OR ---
DATE OF PROCEDURE: 05/08/2021 SURGEON: John Collier MD PROCEDURE: Laparoscopic appendectomy. COMPLICATIONS: None. INFORMATION SYSTEMS MANAGER: None. ANESTHESIA: MAC. FINDINGS: None, ruptured appendicitis. RISKS: Risks, benefits, alternatives, and limitations including but not limited to infection, bleeding, and injury to abdominal structures including bowel and bladder. The patient understands these risks and wishes to proceed. PROCEDURE IN DETAIL: The patient was placed in supine position. A supraumbilical curvilinear incision was made. A Veress needle was used to enter the abdomen without abnormality. A drop test was performed without abnormality. The abdomen was subsequently insufflated. This was followed by two 5 mm trocars. The appendix was identified. The appendix was then transected using a hernandez load stapler. There was minimal to no peritonitis. There was no evidence of abscess formation. The staple line was inspected. No bleeding was noted. The abdomen was irrigated with 1 L of irrigation. The entry point was inspected for enterotomy or injury, none was noted. The air was removed. The wounds were closed with 3-0 Vicryl and 4-0 Vicryl in interrupted running fashion. Dermabond was applied. The patient tolerated the procedure well. John Collier MD /[id number]
--- NOTE | 2021-05-11 09:29 | OR ---
DATE OF PROCEDURE: 05/10/2021 SURGEON: John Collier MD PROCEDURES: 1. Transversus abdominis plane blocks bilaterally. 2. Rectus sheath blocks bilaterally. COMPLICATIONS: None. ALUMINUM SIDING MECHANIC: None. RISKS: Risks, benefits, alternatives, and limitations including but not limited to infection, bleeding, and injury to abdominal structures were all explained to the patient. They wished to proceed. PROCEDURE IN DETAIL: The patient was placed in supine position. The left transversus plane was then identified first. A 10% solution was injected in this location. This was then repeated on the other side. The bilateral rectus sheaths were also injected without difficulty. 10% of the solution was injected respectively. With respect to the rectus sheath, posterior sheaths were also injected without difficulty. The patient tolerated the procedure well. John Collier MD /[id number]
--- NOTE | 2021-05-11 10:01 | OR ---
DATE OF PROCEDURE: 05/10/2021 SURGEON: John Collier MD PROCEDURE: Hematoma evacuation. FINDINGS: Hematoma in correlation with a CT scan identified hematoma. PREOPERATIVE DIAGNOSIS: Hematoma secondary to emergent . POSTOPERATIVE DIAGNOSIS: Hematoma secondary to emergent . RISKS: Risks, benefits, alternatives, and limitations including, but not limited to infection, bleeding, injury to abdominal structures, and requirement for reoperation, chronic wounds, chronic pain were all explained to the patient and they wished to proceed. PROCEDURE IN DETAIL: The patient was placed in supine position. The previous Pfannenstiel type incision was opened. This was carried down to the level of the fascia. The hematoma was identified at this location and subsequently removed. The etiologies appeared to be from the rectus muscles. This was then subsequent evacuated, irrigated. One small artery was identified, not actively bleeding, was subsequently ligated. The fascia was closed with #1 Vicryl suture. Subcutaneous tissues were approximated with 3- 0 Vicryl. Skin was closed with 4-0 Vicryl. Dermabond was applied. The patient tolerated procedure well. Of note, a single 10 flat Erick-Cabezas drain was placed in the hematoma area and sutured without difficulty. John Collier MD /[id number]
--- NOTE | 2021-05-11 11:41 | PN ---
DATE OF SERVICE: 05/11/2021 SUBJECTIVE: The patient is doing well. Pain is well controlled. No nausea, vomiting, shortness of breath, or chest pain. Her hemoglobin has remained stable. OBJECTIVE: VITAL SIGNS: Stable, per nursing report. CARDIOVASCULAR: Regular rhythm and rate. RESPIRATORY: Lungs clear to auscultation bilaterally. ABDOMEN: GUS output is less than 20 respectively. Incision healing well. ASSESSMENT: Status post emergent . PLAN: The patient will be discharged today after we will transfuse 1 unit of packed red blood cells. We will also have her come back to the hospital tomorrow and check hemoglobin. The patient does not show any signs of active bleeding. The drain output is minimum. Her hemoglobin has essentially stabilized. She feels subjectively well. The patient and I discussed the risks of being discharged and the option for staying 1 additional night, which she has politely declined. John Collier MD /[id number]
[2021-05-11] MEDS: Ibuprofen 800 MG Tab PO PRN (12:14)
--- NOTE | 2021-05-11 12:55 | DISCH ---
DISCHARGE DIAGNOSIS: Status post . SUMMARY OF HOSPITAL COURSE: This is a pleasant 25-year-old female who underwent a stat C- section due to significant emergent reasons for baby. The patient did well. She did develop a hematoma of her rectus sheath which required evacuation. Prior to discharge, her pain is well controlled. She had no nausea, vomiting, shortness of breath, or chest pain. Having bowel movements. Hemoglobin has just stabilized. Her drain output is minimum. FOLLOWUP: With Surgery in 7 to 14 days. ACTIVITY: No lifting greater than 30 pounds x30 days. DISCHARGE MEDICATIONS: Please see MAR for details. /[id number]
== END 2021-05-11 18:20 | disposition home or self-care (01) | DRG 540 ==
LOC: JP.OB 07:04 → OBSVTOIN 14:41 → JP.MS 18:39
PROVIDERS: ADMIT Advanced Practice Midwife; ATTEND Advanced Practice Midwife
PROC: 10D00Z1 Extraction of Products of Conception, Low, Open Approach (ICD-10-PCS; principal; 2021-05-08)
PROC: 0DTJ4ZZ Resection of Appendix, Percutaneous Endoscopic Approach (ICD-10-PCS; 2021-05-08)
PROC: 3E0P7VZ Introduction of Hormone into Female Reproductive, Via Natural or Artificial Opening (ICD-10-PCS; 2021-05-08)
PROC: 4A1HXCZ Monitoring of Products of Conception, Cardiac Rate, External Approach (ICD-10-PCS; 2021-05-08)
PROC: 0JC80ZZ Extirpation of Matter from Abdomen Subcutaneous Tissue and Fascia, Open Approach (ICD-10-PCS; 2021-05-10)
PROC: 30233N1 Transfusion of Nonautologous Red Blood Cells into Peripheral Vein, Percutaneous Approach (ICD-10-PCS; 2021-05-11)
DX: O13.4 Gestational [pregnancy-induced] hypertension without significant proteinuria, complicating childbirth (principal); O99.62 Diseases of the digestive system complicating childbirth; K35.32 Acute appendicitis with perforation, localized peritonitis, and gangrene, without abscess; Z20.822 Contact with and (suspected) exposure to COVID-19; O76 Abnormality in fetal heart rate and rhythm complicating labor and delivery; Z3A.39 39 weeks gestation of pregnancy; Z37.0 Single live birth; O90.2 Hematoma of obstetric wound
CPT/HCPCS: 36415; 36430; 74177; 76818; 76818-26; 80048; 80305-QW; 81001; 85018; 85025; 85027; 86850; 86900; 86901; 86920; 86922; 87070; 87075; 87205; 88307; 99211; A9270-GY; J0171; J0330; J0690; J1100; J1885; J2405; J2590; J2704; J2710; J2795; J3010; J3105; J3490; J7120; P9016; P9017; Q9967; U0002

== ENCOUNTER 2021-05-13 22:27 | Emergency (ER) | payer BC ==
--- NOTE | 2021-05-14 00:08 | EDM.PDOC ---
ED HPI GENERAL MEDICAL PROBLEM - General Chief Complaint: Fever Stated Complaint: POST SURGERY WITH FEVER Time Seen by Provider: 05/13/21 23:45 Source of Information: Reports: Patient History Limitations: Reports: No Limitations - History of Present Illness INITIAL COMMENTS - FREE TEXT/NARRATIVE: Patient presents to the ER today due to fever that occurred around 1900 (T-101.5), she has taken a norco & 800mg ibuprofen prior to coming to the ER. She has significant history with emergent primary C/S on Tuesday, return to the OR on Tuesday due to bleeding (now has GUS drain in place). She reports overall she is feeling better, no increasing pain/discomfort, lochia reported to be unchanged since hospital d/c, no urinary tract symptoms, no cough/congestion or symptoms otherwise. eating normal diet, walking some, is going good/no concerns reported. She states she was instructed to go to the ER should she have temperature as noted tonight. PMH/Meds--as per EMR NKDA Onset: Today, Sudden denies pain Pain Score (Numeric/FACES): 0 - Related Data Allergies Allergy/AdvReac Type Severity Reaction Status Date / Time No Known Allergies Allergy Verified 04/30/21 10:21 Home Meds: Home Meds Ferrous Gluconate [Iron] 1 tab PO DAILY 04/30/21 [History] Pnv No.95/Ferrous Fum/Folic AC [ Caplet] 1 tab PO DAILY 04/30/21 [History] Past Medical History HEENT History: Reports: Impaired Vision Cardiovascular History: Reports: Hypertension, Other (See Below) Other Cardiovascular History: HTN with . MANAGER PARTY History: Reports: , Other (See Below) Other MANAGER PARTY History: PCOS Neurological History: Reports: Vertigo, Other (See Below) Other Neuro History: occasional fainting. Psychiatric History: Reports: Depression Hematologic History: Reports: Blood Transfusion(s), Iron Deficiency - Infectious Disease History Infectious Disease History: Reports: Chicken Pox - Past Surgical History HEENT Surgical History: Reports: None Cardiovascular Surgical History: Reports: None Female Surgical History: Reports: Section, Other (See Below) Other Female Surgeries/Procedures: free fluid evacuated from abd Neurological Surgical History: Reports: None Social & Family History - Tobacco Use Tobacco Use Status *Q: Never Tobacco User - Caffeine Use Caffeine Use: Reports: Coffee - Recreational Drug Use Recreational Drug Use: No ED ROS GENERAL - Review of Systems Review Of Systems: Comprehensive ROS is negative, except as noted in HPI. Constitutional: Reports: Fever HEENT: Reports: No Symptoms Respiratory: Reports: No Symptoms Cardiovascular: Reports: No Symptoms GI/Abdominal: Reports: No Symptoms : Reports: No Symptoms ED EXAM, GENERAL - Physical Exam Exam: See Below Exam Limited By: No Limitations General Appearance: Alert, WD/WN, No Apparent Distress Eye Exam: Bilateral Eye: EOMI, Normal Inspection Ears: Normal External Exam Nose: Normal Inspection Throat/Mouth: Normal Inspection, Normal Voice, No Airway Compromise Head: Atraumatic, Normocephalic Neck: Normal Inspection, Supple, Non-Tender, Full Range of Motion Respiratory/Chest: No Respiratory Distress, Lungs Clear, Normal Breath Sounds Cardiovascular: Normal Peripheral Pulses, Regular Rate, Rhythm, No Murmur Peripheral Pulses: 2+: Radial (L), Radial (R) GI/Abdominal: Normal Bowel Sounds, Soft, Tender (mild uterine tenderness (states not increasing in nature), uterus palpated 4-FB below umbilicus, low transverse c/s incision healing/mild scabbing-no drainage/discharge, GUS drain in place to right side of incision line, has noted eccymosis to lower abdomen extending into pubis/mons area/healing) (Female) Exam: Deferred Rectal (Female) Exam: Deferred Back Exam: Normal Inspection, Full Range of Motion Extremities: Normal Inspection, Normal Range of Motion, Normal Capillary Refill, Pedal Edema (trace pedal edema (patient states improving in nature)) Neurological: Alert, Oriented, Normal Cognition, Normal Gait, No Motor/Sensory Deficits Psychiatric: Normal Affect, Normal Mood Skin Exam: Warm, Dry, Intact, Normal Color Course - Vital Signs Text/Narrative:: 0045--call placed to Dr Baker, OB due to patient with febrile episode postsurgical/. Case was discussed and she recommends Rocephin IV 1 gram plus Augmentin po x 10 days. To instruct patient to contact OB clinic--Dr Garcia, OB tomorrow/in the am for ER follow up 49--d/w patient today's ER findings and recommendations in further care to include IV ABX x 1 dose tonight followed by oral ABX at home & need to contact her OB in the morning for ER follow up in the clinic. she verbalized understanding/agreement, ready for d/c when ABX completed Last Recorded V/S: Last Vital Signs Temp 97.8 F 05/13/21 23:06 Pulse 84 05/13/21 23:06 Resp 12 05/13/21 23:06 BP 159/95 H 05/13/21 23:06 Pulse Ox 97 05/13/21 23:06 - Orders/Labs/Meds Orders: Active Orders 24 hr Category Date Time Status CULTURE URINE [RM] Stat Lab 05/14/21 00:44 Received Labs: Laboratory Tests 05/13/21 05/13/21 05/14/21 Range/Units 00:17 00:17 00:10 WBC 11.3 H (4.5-11.0) K/uL RBC 3.09 L (3.30-5.50) M/uL Hgb 9.5 L (12.0-15.0) g/dL Hct 28.1 L (36.0-48.0) % MCV 91 (80-98) fL MCH 31 (27-31) pg MCHC 34 (32-36) % Plt Count 318 (150-400) K/uL Neut % (Auto) 58.4 (36-66) % Lymph % (Auto) 29.2 (24-44) % [place] % (Auto) 9.5 H (2-6) % Eos % (Auto) 2.5 (2-4) % Baso % (Auto) 0.4 (0-1) % Sodium 141 (140-148) mmol/L Potassium 3.3 L (3.6-5.2) mmol/L Chloride 104 (100-108) mmol/L Carbon Dioxide 26 (21-32) mmol/L Anion Gap 14.3 H (5.0-14.0) mmol/L BUN 16 (7-18) mg/dL Creatinine 0.8 (0.6-1.0) mg/dL Est Cr Clr Drug Dosing 95.05 mL/min Estimated GFR (MDRD) > 60 (>60) Glucose 87 (74-106) mg/dL Calcium 8.1 L (8.5-10.1) mg/dL Urine Color Yellow (YELLOW) Urine Appearance Clear (CLEAR) Urine pH 6.0 (5.0-8.0) Ur Specific [place] 1.025 (1.008-1.030) Urine Protein 30 H (NEGATIVE) mg/dL Urine Glucose (UA) Negative (NEGATIVE) mg/dL Urine Ketones Negative (NEGATIVE) mg/dL Urine Occult Blood Negative (NEGATIVE) Urine Nitrite Negative (NEGATIVE) Urine Bilirubin Small H (NEGATIVE) Urine Urobilinogen 4.0 H (0.2-1.0) EU/dL Ur Leukocyte Esterase Negative (NEGATIVE) Urine RBC 0-5 (0-5) Urine WBC 5-10 H (0-5) Ur Epithelial Cells Rare Amorphous Sediment Not seen Urine Bacteria Rare Urine Mucus Many Departure - Departure Time of Disposition: 00:51 Disposition: Home, Self-Care 01 Clinical Impression: Endometritis, Elevated blood pressure reading - Discharge Information *PRESCRIPTION DRUG MONITORING PROGRAM REVIEWED*: Not Applicable *COPY OF PRESCRIPTION DRUG MONITORING REPORT IN PATIENT YASMIN: Not Applicable Instructions: Hypertension, Endometritis Referrals: Marleen Garcia CNM [Primary Care Provider] - Forms: ED Department Discharge Additional Instructions: Augmentin has been ordered--you can get this from the [facility] in the ER Lobby and start in the morning Contact your OB--Dr Garcia in the morning as it is recommended that you are seen in the clinic for ER follow up Ensure you are drinking plenty of fluids-water, juice, sports drinks/david of choice, get plenty of rest, continue to breast feed as demanded by your baby Sepsis Event Note (ED) - Evaluation Sepsis Screening Result: No Definite Risk - Focused Exam Vital Signs: Vital Signs Temp Pulse Resp BP Pulse Ox 05/13/21 23:06 97.8 F 84 12 159/95 H 97 05/13/21 22:56 97.8 F 84 12 159/95 H 97 - My Orders Last 24 Hours: My Active Orders 05/14/21 00:44 CULTURE URINE [RM] Stat - Assessment/Plan Last 24 Hours: My Active Orders 05/14/21 00:44 CULTURE URINE [RM] Stat
[2021-05-14] MEDS ORDERED: cefTRIAXone 1 GM in Sodium Chloride 0.9% 50 ML IV ONE (00:47)
[2021-05-14] MEDS ORDERED: cefTRIAXone 1 GM AdvVial IV ONE (01:01)
[2021-05-14] MEDS ORDERED: Sodium Chloride 0.9% 0 ML ONE (01:01)
== END 2021-05-14 02:00 | disposition home or self-care (01) ==
LOC: JP.ED 22:27
DX: N71.9 Inflammatory disease of uterus, unspecified (principal); I10 Essential (primary) hypertension; R60.0 Localized edema
CPT/HCPCS: 36415; 80048; 81001; 85025; 87086; 96365; 99283; J0696

== ENCOUNTER 2023-04-03 14:18 | Emergency (ER) | payer BC ==
[2023-04-03 15:46] LABS: HEMATOCRIT 32.4 % (34.3-46.0); MEAN CORPUSCULAR HEMOGLOBIN 30.4 pg (31.6-35.5); MEAN CORPUSCULAR VOLUME 89.5 fL (81.4-99.0); RED BLOOD CELL COUNT 3.62 M/uL (3.77-5.24); WHITE BLOOD CELL COUNT,WBC 10.7 K/uL (3.2-11.0)
[2023-04-03 16:03] LABS: INR 0.9; PROTHROMBIN TIME 9.6 sec (9.2-10.6)
[2023-04-03 16:15] LABS: A/G RATIO 0.7 (1.2-2.2); ALANINE AMINOTRANSFERASE,ALT 12 U/L (12-78); ALBUMIN 2.7 g/dL (3.4-5.0); ALKALINE PHOSPHATASE 61 U/L (46-116); ASPARTATE AMNIOTRANSFERASE,AST 14 U/L (15-37); BILIRUBIN TOTAL 0.4 mg/dL (0.2-1.0); BLOOD UREA NITROGEN,BUN 7 mg/dL (7-18); CALCIUM 8.4 mg/dL (8.5-10.1); CARBON DIOXIDE,CO2 24 mmol/L (21-32); CHLORIDE,CL 105 mmol/L (100-108); CREATININE 0.5 mg/dL (0.6-1.0); EST CRCL DRUG DOSING (CG) 149.39 mL/min; ESTIMATED GFR 130 mL/min (>60); GLUCOSE RANDOM 78 mg/dL (74-106); POTASSIUM,K 3.3 mmol/L (3.6-5.2); PROTEIN TOTAL,TP 6.7 g/dL (6.4-8.2); SODIUM,NA 139 mmol/L (140-148)
[2023-04-03 16:17] LABS: ANION GAP 13.3 mmol/L (5.0-14.0)
[2023-04-03] MEDS ORDERED: Sodium Chloride 0.9% 10 ML SDV FLUSH ONE (16:47)
[2023-04-03] MEDS ORDERED: Iopamidol 755 Mg/ML 100 ML Bottle IV SCH (17:00)
[2023-04-03] MEDS ORDERED: Sodium Chloride 0.9% 100 ML IV SCH (17:00)
[2023-04-03 18:29] LABS: APPEARANCE,URINE CLEAR (CLEAR); BILIRUBIN,URINE NEGATIVE (NEGATIVE); COLOR,URINE YELLOW (YELLOW); GLUCOSE,URINE NEGATIVE (NEGATIVE); KETONES,URINE 40 mg/dL (NEGATIVE); LEUKOCYTE ESTERASE,URINE NEGATIVE (NEGATIVE); NITRITE,URINE NEGATIVE (NEGATIVE); OCCULT BLOOD,URINE NEGATIVE (NEGATIVE); PH,URINE 5.5 (5.0-8.0); PROTEIN,URINE 30 mg/dL (NEGATIVE)
[2023-04-03 18:47] LABS: AMORPHOUS SEDIMENT,URINE NOT SEEN; BACTERIA,URINE FEW; EPITHELIAL CELLS,URINE MANY; MUCUS,URINE FEW; RBC,URINE 0-5 (0-5); WBC,URINE 0-5 (0-5)
== END 2023-04-03 18:27 | disposition home or self-care (01) ==
LOC: JP.ED 14:18
DX: O99.891 Other specified diseases and conditions complicating pregnancy (principal); R07.9 Chest pain, unspecified; I10 Essential (primary) hypertension
CPT/HCPCS: 36415; 71275; 80053; 81001; 83605; 84484; 85027; 85379; 85610; 93005; 99285; J3490; Q9967

== ENCOUNTER 2024-08-12 04:35 | Emergency (ER) | payer BC | END 2024-08-12 06:24 | disposition home or self-care (01) | LOC: JP.ED 04:35 | DX: J02.9 Acute pharyngitis, unspecified (principal); I10 Essential (primary) hypertension | CPT/HCPCS: 87651-QW; 99283; 99284 ==